=== PATIENT | female | born 1975 | race Caucasian/White ===

== ENCOUNTER 2017-11-11 11:04 | Day surgery (SDC) | payer MEDICARE, MEDICAID ==
[~2017-11-11 11:04] MED LIST: ACETAMINOPHEN 1,000 MG/100 ML BTL IV ONE; CEFAZOLIN 2 Gram 2 GM/50 ML BAG IVPB ONE
[2017-11-11] MEDS ORDERED: LIDOCAINE 2% MDV (20MG/ML) 20ML VIAL IV ONE (11:05)
[2017-11-11] MEDS ORDERED: BUPIVACAINE 0.5% W/EPI MPF 30 ML VIAL IVP ONE (11:05)
[2017-11-11] MEDS ORDERED: FENTANYL PF 100MCG/2ML VIAL IV ONE (11:05)
[2017-11-11] MEDS ORDERED: PROPOFOL 10 MG/ML VIAL IV ONE (11:05)
[2017-11-11] MEDS ORDERED: DESFLURANE 240 ML BTL INH ONE (11:05)
[2017-11-11] MEDS ORDERED: MIDAZOLAM HCL 2MG/2ML VIAL IV ONE (11:05)
[2017-11-11] MEDS ORDERED: ONDANSETRON HCL IV 4 MG/2 ML VIAL IVP ONE (11:05)
[2017-11-11] MEDS ORDERED: DEXAMETHASONE 4 MG/ML 1ML VIAL IVP ONE (11:05)
[2017-11-11] MEDS ORDERED: MORPHINE SULFATE 4 MG/ML VIAL ONE (13:30)
--- NOTE | 2017-11-13 17:51 | Operative Note ---
DATE OF SURGERY: 11/11/17 PREOPERATIVE DIAGNOSIS: INTERNAL DERANGEMENT OF THE RIGHT KNEE. POSTOPERATIVE DIAGNOSES: LATERAL SUBLUXATION OF THE PATELLA WITH GRADE 3-4 CHONDRAL LESION OF THE PATELLA FACET LATERALLY AND LATERAL ASPECT OF THE NOTCH. PROCEDURE: RIGHT KNEE ARTHROSCOPY WITH CHONDROPLASTY OF THE PATELLOFEMORAL COMPARTMENT. STAFF SURGEON: JOAN COMBS M.D. ANESTHESIA: GENERAL. PREPARATION: CHLORAPREP. INDIVIDUAL CONSIDERATIONS: NONE. PROCEDURE: The patient was taken to the Operating Room and placed supine on the operating table. She had a successful induction of a general anesthetic. Her right lower extremity was prepped and draped in the usual fashion. The patient had a superolateral inflow cannula placed. The skin was infiltrated with 0.5% Marcaine with Epinephrine prior. A large clear effusion was drained. The knee was inflated with normal saline. An inferior medial and an inferior lateral portal were made in a similar fashion. The arthroscope was introduced through the inferior lateral portal up into the pouch. The patellofemoral compartment showed lateral tracking and some moderate synovitis in the pouch and this was debrided. She had basically grade 3-4 change of the lateral facet of the patella, which was also articulating in the very lateral aspect of the notch. Centrally in the notch and centrally in the patella, the cartilage actually looked good. There was peeling cartilage off the lateral aspect of the notch, which was way lateral from the midline. The peeling cartilage was all debrided out. The 3-4 change of the patella was smoothed. Cartilaginous debris was irrigated out. Medial and lateral compartments were well-seen and probed and found to be normal including the menisci and articular cartilage. In the notch, the cruciates were normal. The knee was then irrigated out with saline to remove loose floating debris. Portals were closed with tonya and 20 mL of 0.5% Marcaine with Epinephrine along with 4 mg of Morphine and 80 mg DepoMedrol were injected into the knee and a sterile Bulkee compressive dressing was applied. The patient tolerated the procedure well. Needle and sponge counts were correct. Estimated blood loss was minimal and she was taken back into Recovery in good condition. There were no complications. JOB NUMBER: [id number] [facility]
== END 2017-11-11 15:15 | disposition home or self-care (01) ==
LOC: SUR 11:04
PROVIDERS: ATTEND Orthopaedic Surgery
DX: S83.011A Lateral subluxation of right patella, initial encounter (principal); M24.10 Other articular cartilage disorders, unspecified site; G47.33 Obstructive sleep apnea (adult) (pediatric); F31.9 Bipolar disorder, unspecified
CPT/HCPCS: 29877; 01400; J2405; J3010; J0690; J2270

== ENCOUNTER 2017-12-08 09:14 | Day surgery (SDC) | payer MEDICAID, MEDICARE ==
[2017-12-08] MEDS ORDERED: MIDAZOLAM HCL 2MG/2ML VIAL IV ONE (09:15)
[2017-12-08] MEDS ORDERED: DEXAMETHASONE 4 MG/ML 1ML VIAL IVP ONE (09:15)
[2017-12-08] MEDS ORDERED: ROPIVACAINE HCL (NAROPIN) /PF 5MG/ML 20ML VIAL IV ONE (09:15)
[2017-12-08] MEDS ORDERED: ONDANSETRON HCL IV 4 MG/2 ML VIAL IVP ONE (09:15)
[2017-12-08] MEDS ORDERED: MORPHINE SULFATE 4MG/ML PREFILLED SYRINGE IVP ONE (09:15)
[2017-12-08] MEDS ORDERED: MORPHINE SULFATE 10 MG/ML VIAL IVP ONE (09:15)
[2017-12-08] MEDS ORDERED: BUPIVACAINE 0.5% W/EPI MPF 30 ML VIAL IVP ONE (09:15)
[2017-12-08] MEDS ORDERED: SEVOFLURANE 250 ML INH ONE (09:15)
[2017-12-08] MEDS ORDERED: PROPOFOL 10 MG/ML VIAL IV ONE (09:15)
[2017-12-08] MEDS ORDERED: LIDOCAINE 2% MDV (20MG/ML) 20ML VIAL IV ONE (09:15)
[2017-12-08] MEDS ORDERED: MORPHINE SULFATE 4 MG/ML VIAL ONE (12:46)
--- NOTE | 2017-12-08 17:00 | Operative Note ---
DATE OF SURGERY: 12/08/2017 PREOPERATIVE DIAGNOSES: 1. Lateral patellar instability, right knee. 2. Chondral lesion of the lateral aspect of the notch. OPERATION: 1. Right knee tibial tubercle osteotomy. 2. Right knee arthroscopy with subchondral drilling. 3. Right knee lateral release. Staff Surgeon: Sergio Verduzco MD Anesthesia: General. Preparation: Chloraprep. Individual Considerations: None. PROCEDURE: The patient was taken to the operating room and placed supine on the operating room table. She had successful induction of a general anesthetic. Her right lower extremity was prepped and draped in the usual fashion. Limb was elevated, tourniquet was inflated to 250 mmHg. The patient had a superolateral inflow cannula placed. The skin was infiltrated with 0.5% Marcaine with epinephrine prior. A stab wound was made and the inflow cannula was placed. The knee was inflated with normal saline. An inferior medial and an inferior lateral portal were made in a similar fashion. The arthroscope was introduced through the inferolateral portal up in the pouch. Patellofemoral joint showed obvious lateral tracking with near dislocation. She had grade 3 changes medially and some grade 4 changes on the patella laterally and also there was a chondral lesion on the notch on the lateral side measuring about 1.25 by 2 to 2.5 cm. After cleaning up loose cartilage at the periphery, I introduced a 0.045 finger pin and drilled holes in it through the subchondral bone. No significant synovitis was seen in either pouch. Medial and lateral compartment structures were normal in the notch. The cruciates were normal. After irrigation, the arthroscopy portals were closed with tonya. The patient had midline approach to the tibial tubercle. An incision was made just inferior to the inferior pole of the patella along the midline and then along the anterior ridge of the tibial tubercle and proximal tibia. The skin was infiltrated with 0.5% Marcaine with epinephrine prior. Sharp dissection was carried down through skin and subcutaneous tissue. Small veins were coagulated with a Bovie. The muscles and periosteum from the anterior ridge were then taken down off the proximal tibia on the anterior compartment subperiosteally. This was done maybe 1 cm to 1.5 cm. Then, using an oscillating saw, I made a broad-based osteotomy of the tibial tubercle and proximal tibia measuring about 8 cm. I cut it so when it went medially, it would bring it slightly anteriorly. I then brought it distally a few millimeters to compensate for the cosign of the angle and then secured it with 2 guide pins for the 6.5 cannulated screws. It was found that the proximal screw should be 50 and the distal screw should be 45. I then drilled the near cortex with a cannulated drill and then secured it with 6.5 cannulated screws and washers. Prior to this, I did move it over about a centimeter medially. After securing it and putting the knee through a full range of motion, the patella appeared to trach more evenly. This was verified by fluoroscopy. The tourniquet was let down and hemodialysis was obtained with a Bovie. The distal 2/3 of the periosteum was closed with a running 0 Vicryl, subcu was closed with 2-0 plus Vicryl, and skin was closed with running 3-0 quill. I then injected the knee with about 15 mL of 0.5% Marcaine with epinephrine along with 4 mg of morphine. A sterile bulky compressive Aquacel-type dressing was applied and on top of that, for the arthroscopy wounds, I applied Kerlix and Geoffrey wrap and ABD pads. The patient tolerated the procedure well. Needle and sponge counts were correct. Estimated blood loss was minimal, and she was taken back to recovery in good condition. There were no complications. JUDIT
== END 2017-12-08 14:10 | disposition home or self-care (01) ==
LOC: SUR 09:14
PROVIDERS: ATTEND Orthopaedic Surgery
DX: M25.361 Other instability, right knee (principal); M24.10 Other articular cartilage disorders, unspecified site; I10 Essential (primary) hypertension; I73.00 Raynaud's syndrome without gangrene; G47.33 Obstructive sleep apnea (adult) (pediatric); F17.210 Nicotine dependence, cigarettes, uncomplicated
CPT/HCPCS: 29887; 27418; 27425; 01320; 64447; 76000; J2405; J0690; J2795; J2274; J2270 ×2; C1713

== ENCOUNTER 2018-05-19 12:01 | Day surgery (SDC) | payer MEDICARE, MEDICAID ==
[2018-05-19] MEDS ORDERED: PROPOFOL 10 MG/ML VIAL IV ONE (12:02)
[2018-05-19] MEDS ORDERED: LIDOCAINE 2% MDV (20MG/ML) 20ML VIAL IV ONE (12:02)
[2018-05-19] MEDS ORDERED: MIDAZOLAM HCL 2MG/2ML VIAL IV ONE (12:02)
[2018-05-19] MEDS ORDERED: FENTANYL PF 100MCG/2ML VIAL IV ONE (12:02)
[2018-05-19] MEDS ORDERED: LIDOCAINE 1% W/EPI 1:200,000 MPF 30ML SQ ONE (16:09)
[2018-05-19] MEDS ORDERED: BUPIVACAINE 0.5% W/EPI MPF 30 ML VIAL SQ ONE (16:09)
[2018-05-19] MEDS ORDERED: RINGERS SOLUTION,LACTATED 150 ML IV ONE (16:16)
--- NOTE | 2018-05-21 08:30 | Operative Note ---
DATE OF SURGERY: 05/19/2018 PREOPERATIVE DIAGNOSIS: Painful hardware right tibial tubercle. POSTOPERATIVE DIAGNOSIS: Painful hardware right tibial tubercle. OPERATION: Removal of deep buried hardware right tibial tubercle. Staff Surgeon: Sergio Verduzco MD Anesthesia: Local with sedation. Preparation: Chloraprep. Individual Considerations: None. PROCEDURE: The patient was taken to the operating room and the right leg was prepped and draped in the usual fashion. She had a successful induction of IV sedation. The patient had about a 3 cm incision directly over the hardware. Skin was infiltrated with a 50/50 mixture of 0.5% Marcaine with epinephrine and 1% lidocaine with epinephrine. Sharp dissection carried down to through the skin and subcutaneous tissue. Then sharp dissection carried down on top of both screws. A periosteal elevator was used to free up the soft tissue. Both screws and washers were then easily removed. After irrigation, I just closed the skin with 3-0 quill and a sterile dressing was applied. She was taken back to recovery in good condition. There were no complications. JUDIT
== END 2018-05-19 16:40 | disposition home or self-care (01) ==
LOC: SUR 12:01
PROVIDERS: ATTEND Orthopaedic Surgery
DX: T84.84XA Pain due to internal orthopedic prosthetic devices, implants and grafts, initial encounter (principal); G47.33 Obstructive sleep apnea (adult) (pediatric); I95.9 Hypotension, unspecified; R01.1 Cardiac murmur, unspecified; I73.00 Raynaud's syndrome without gangrene
CPT/HCPCS: J7120